=== PATIENT | male | born 1980 | race Caucasian/White ===

== ENCOUNTER 2020-03-26 08:59 | Observation (INO) | payer OTHER ==
[~2020-03-26] VITALS: Ht 190.5 cm; Wt 70.4 kg
--- NOTE | 2020-03-26 09:33 | EKG ---
[address] [address] Test Date: 2020-03-26 Test Time: 09:26:39 Pat Name: MARTIN CARRERA Department: Room: Gender: M Compensation And Benefits Analyst: SONIA : 1980 Requested By: HARSHAL WARREN Order Number: [id number] Reading MD: Measurements Intervals [place] Rate: 95 P: 56 NC: 136 QRS: 59 QRSD: 90 T: 52 QT: 352 QTc: 446 Interpretive Statements SINUS RHYTHM NORMAL ECG RI6.02 No previous ECG available for comparison
[2020-03-26 10:08] LABS: BASO # 0.1 x10^3/uL (0.0-0.2); BASO % 1 % (0-3); EOS % 1 % (0-3); LYMPH # 0.7 x10^3/uL (1.0-4.8); LYMPH % 13 % (24-48); MEAN CORPUSCULAR HEMOGLOBIN 22 pg (25-35); MEAN CORPUSCULAR HGB CONC 29 g/dL (31-37); MEAN CORPUSCULAR VOLUME 76 fL (79-100); MONO # 0.8 x10^3/uL (0.0-1.1); MONO % 15 % (0-9); NEUT # 4.1 x10^3uL (1.8-7.7); NEUT % 71 % (31-73); PLATELET COUNT 466 x10^3/uL (140-400); RED BLOOD COUNT 3.04 x10^6/uL (4.30-5.70); RED CELL DISTRIBUTION WIDTH 18.9 % (11.5-14.5); WHITE BLOOD COUNT 5.8 x10^3/uL (4.0-11.0)
--- NOTE | 2020-03-26 10:09 | PHYS DOC ---
Past History Past Medical History: Alcoholism Past Surgical History: No Surgical History Additional Smoking Information: 02/07 PPD Alcohol Use: Heavy Additional Alcohol Information: recently decreased to 0.5-1 pint per day of Vodka from 2.5 pints/day. Social History Narrative: see HPI. previous high levels of anxiety related to ETOH withdrawl. General Adult EDM: Chief Complaint: WITHDRAWAL HPI: HPI: Patient is a 39-year male coming in for medical clearance for alcohol rehab. Patient states he is already contacted rehab facility [facility] except therapy is medically cleared. States he has a long history of daily alcohol use and continues to drink a half of a pint to a pint of vodka daily. Last alcohol intake was last night. Has a history of anxiety alcohol withdrawal tremors but denies any his seizure history. Denies any auditory visual hallucinations. No other medical additions, otherwise has been well. Denies any other drug use. Denies any known history of cirrhosis. Did have an episode of GI bleeding about 3 weeks ago. States that he had vomited blood and had dark stools but symptoms only lasted for 1 to 2 days and have completely resolved now. Patient states he is having brown stools not diarrhea. Review of Systems: Review of Systems: All other systems within normal limits except for as noted in the HPI Physical Exam: PE: Constitutional: Well developed, well nourished, no acute distress, non-toxic appearance. [] HENT: Normocephalic, atraumatic, bilateral external ears normal, nose normal. [] Eyes: PERRLA, conjunctiva normal, no discharge. [] Neck: No rigidity, supple, no stridor. [] Cardiovascular: Regular rate and rhythm, brisk cap refill [] Lungs & Thorax: Non labored symmetric respirations, no tachypnea or respiratory distress [] Abdomen: Soft, nondistended, no abdominal tenderness, negative Driscoll sign Skin: Warm, dry, no erythema, no rash. [] Back: Unremarkable Extremities: No deformities, range of motion grossly intact, no lower extremity edema [] Neurologic: Alert and oriented X 3, no focal deficits noted. [] Psychologic: Affect normal, judgement normal, mood normal. [] Current Patient Data: Vital Signs: Vital Signs Date Time Temp Pulse Resp B/P (MAP) Pulse Ox O2 Delivery O2 Flow Rate FiO2 03/26/20 09:49 98.0 111 18 119/74 (89) 99 Room Air EKG: EKG: Sinus rhythm, heart rate 95 bpm, normal axis, no ST elevation or depression, no ectopy, normal intervals. [] Radiology/Procedures: Radiology/Procedures: [] Heart Score: Risk Factors: Risk Factors: DM, Current or recent (<one month) smoker, HTN, HLP, family history of CAD, obesity. Risk Scores: Score 0 - 3: 2.5% MACE over next 6 weeks - Discharge Home Score 4 - 6: 20.3% MACE over next 6 weeks - Admit for Clinical Observation Score 7 - 10: 72.7% MACE over next 6 weeks - Early Invasive Strategies Course & Med Decision Making: Course & Med Decision Making Pertinent Labs and Imaging studies reviewed. (See chart for details) [] Dragon Disclaimer: Dragon Disclaimer: This electronic medical record was generated, in whole or in part, using a voice recognition dictation system. Departure Departure: Impression: Primary Impression: Hypokalemia Additional Impressions: Alcohol dependence Microcytic anemia Disposition: ADMITTED INPT THIS HOSP Admitting Physician: Alban Rodriguez Condition: STABLE Referrals: PCP,VLAD (PCP) HARSHAL WARREN MD Mar 26, 2020 10:09
[2020-03-26 10:10] LABS: ALBUMIN 3.7 g/dL (3.4-5.0); ALBUMIN/GLOBULIN RATIO 0.9 (1.0-1.7); CALCIUM 8.8 mg/dL (8.5-10.1); CREATININE 0.7 mg/dL (0.7-1.3); GFR 126.9; TOTAL BILIRUBIN 0.8 mg/dL (0.2-1.0); TOTAL PROTEIN 7.8 g/dL (6.4-8.2)
[2020-03-26 10:10] LABS: BARBITURATES NEG (NEG); BENZODIAZEPINES NEG (NEG); CANNABINOIDS NEG (NEG); COCAINE NEG (NEG); METHADONE NEG (NEG); OPIATES NEG (NEG); PHENCYCLIDINE NEG (NEG)
[2020-03-26 10:13] LABS: HEMOGLOBIN 6.7 g/dL (13.0-17.5)
[2020-03-26 10:15] LABS: AMPHETAMINE/METHAMPHETAMINE NEG (NEG)
[2020-03-26 10:16] LABS: POTASSIUM 2.9 mmol/L (3.5-5.1)
[2020-03-26 10:26] LABS: BACTERIA,URINE 0 /HPF (0-FEW); BILIRUBIN,URINE NEG (NEG); CLARITY,URINE CLEAR; COLOR,URINE AMBER; GLUCOSE,URINE NEG (NEG); NITRITE,URINE NEG (NEG); WBC,URINE OCC /HPF (0-4)
[2020-03-26 10:27] LABS: SQUAMOUS EPITHELIAL CELL,UR OCC /LPF
[2020-03-26 10:48] LABS: HYPOCHROMIA MOD; PLT ESTIMATE INCREASED (ADEQUATE); POLYCHROMASIA PRESENT
[2020-03-26 10:49] LABS: ANISOCYTOSIS SLIGHT; MICROCYTOSIS MOD; TEAR DROP CELLS PRESENT
[2020-03-26] MEDS ORDERED: PANTOPRAZOLE IV 40 MG VIAL. IVP ONE (11:15)
[2020-03-26] MEDS ORDERED: ONDANSETRON PF 4 MG/2 ML VIAL. IVP PRN (11:15)
[2020-03-26] MEDS ORDERED: POTASSIUM CHLORIDE 20 MEQ TABLET.ER. PO ONE ×2 (11:15→15:30)
[2020-03-26 13:44] VITALS: BP 115/68
[2020-03-26 13:59] VITALS: BP 116/68
--- NOTE | 2020-03-26 14:43 | NUR ---
NURSING NOTE ADMIT PT ADMIT TO ROOM ICU BED 5 VIA EMS FROM ED WITH DX OF ANEMIA, ETOH WITHDRAWAL, AND HYPOKALEMIA. PT REPORTS NO MEDICAL HX OTHER THAN WAS TOLD YEARS AGO THAT HE WAS PREDIABETIC. PT STATES HE WAS COMING TO ED FOR MEDICAL CLEARANCE FOR ALCOHOL REHABILITATION PROGRAM AND WAS FOUND TO BE ANEMIC. PT STATES HE TAKES NO HOME MEDICATION. PT STATES HE HAS GREAT SUPPORT AT HOME, HIS MOTHER RAJESH IS VERY INVOLVED WITH HIS CARE, AND HE IS READY FOR REHAB. PT STATES HE HAS CUT DOWN ON HIS ALCOHOL CONSUMPTION, WAS DRINKING 2 PINTS OF VODKA A DAY, NOW DOWN TO 1 PINT OF VODKA A DAY. PT SETTLED IN ROOM. WILL CONTINUE TO MONITOR. MANISH COBIAN.
--- NOTE | 2020-03-26 14:45 | NUR ---
NURSING NOTE BLOOD TRANSFUSION BLOOD TRANSFUSION STARTED AT 1344. TUBING PRIMED WITH NORMAL SALINE AND THEN PRIMED WITH BLOOD. TRANSFUSION STARTED AT 60MLS/HR. PT MONITORED CLOSELY X 15 MIN. NO REACTION NOTED. TRANSFUSION INCREASED TO 125MLS/HR. WILL CONTINUE TO MONITOR. ARANZA HAMMOND.
[2020-03-26 14:52] VITALS: BP 115/56
--- NOTE | 2020-03-26 15:22 | NUR ---
NURSING NOTE SPOKE WITH DR UDVAL ABOUT PT ADMISSION, ORDER RECEIVED FOR 40MEQ OF POTASSIUM CHLOR 1X DOSE NOW, ORDER FOR PRN ATIVAN 1 MG Q4 HRS PRN REPEAT LABS IN AM. PER DR DUVAL, NO ELECTROLYTE REPLACEMENT PROTOCOL, NO ALCOHOL WITHDRAWAL PROTOCOL NEEDED, NO ADDITIONAL FLUIDS AT THIS TIME POST TRANSFUSION PER DR DUVAL. REFER TO CASE MANAGEMENT FOR DISCHARGE PLANNING AND REHAB PER DR DUVAL. MANISH COBIAN.
[2020-03-26 15:50] VITALS: BP 117/68
--- NOTE | 2020-03-26 16:52 | NUR ---
NURSING NOTE UPON ROUNDS, THIS NURSE NOTICED PT STARTING TO HAVE TREMOR AND ANXIETY. CIWA ASSESSMENT REPEATED, SCORE OF 6. PRN ORDER FOR ATIVAN GIVEN. PT GIVEN CHIPS AND GATORADE AND CURRENTLY IN BED WATCHING TV. WILL CONTINUE TO MONITOR. MANISH COBIAN.
[2020-03-26] MEDS ORDERED: cloNIDine HCL 0.1 MG TABLET PO PRN (19:00)
[2020-03-26] MEDS ORDERED: diphenhydrAMINE 50 MG/ML VIAL IVP PRN (19:00)
[2020-03-26] MEDS ORDERED: HALOPERIDOL LACT 5 MG/ML VIAL. IM PRN (19:00)
[2020-03-26 19:38] VITALS: BP 107/60
[2020-03-26 23:16] VITALS: BP 107/70
[2020-03-27 06:02] VITALS: BP 113/70
[2020-03-27 06:56] LABS: BASO # 0.1 x10^3/uL (0.0-0.2); BASO % 1 % (0-3); EOS # 0.1 x10^3/uL (0.0-0.7); EOS % 1 % (0-3); HEMATOCRIT 23.3 % (39.0-53.0); LYMPH # 0.7 x10^3/uL (1.0-4.8); LYMPH % 13 % (24-48); MEAN CORPUSCULAR HEMOGLOBIN 23 pg (25-35); MEAN CORPUSCULAR HGB CONC 30 g/dL (31-37); MEAN CORPUSCULAR VOLUME 77 fL (79-100); MONO # 0.8 x10^3/uL (0.0-1.1); MONO % 15 % (0-9); NEUT # 3.8 x10^3uL (1.8-7.7); NEUT % 69 % (31-73); PLATELET COUNT 395 x10^3/uL (140-400); RED BLOOD COUNT 3.01 x10^6/uL (4.30-5.70); RED CELL DISTRIBUTION WIDTH 19.2 % (11.5-14.5); WHITE BLOOD COUNT 5.6 x10^3/uL (4.0-11.0)
[2020-03-27 07:02] LABS: ALBUMIN 3.1 g/dL (3.4-5.0); ALBUMIN/GLOBULIN RATIO 0.8 (1.0-1.7); CALCIUM 8.8 mg/dL (8.5-10.1); CREATININE 0.7 mg/dL (0.7-1.3); GFR 126.9; POTASSIUM 3.8 mmol/L (3.5-5.1); TOTAL BILIRUBIN 1.1 mg/dL (0.2-1.0); TOTAL PROTEIN 6.9 g/dL (6.4-8.2)
[2020-03-27 07:43] LABS: FECAL OB PT POSITIVE (NEG)
--- NOTE | 2020-03-27 08:00 | NUR ---
This RN assessed CIWA score and currently pt is at a 6. Ativan 2mg IV given per protocol orders. Advised pt that if he is having any new withdrawl symptoms or if Ativan is not helping. Pt is an agreement.
[2020-03-27] MEDS ORDERED: FLU VACC QS 2020-21(6MOS+)/PF 0.5 ML SYRINGE. VAX IM ONE (09:00)
--- NOTE | 2020-03-27 10:30 | NUR ---
Dr. Rodriguez here to see pt this morning. Pt's hgb is higher. Dr. Rodriguez is in agreement with pt going home and to get into outpatient detox facility of his choice. Dr. Rodriguez called and spoke to pt's father regarding poc. Will see if we have a list of outpatient detox centers to assist pt.
--- NOTE | 2020-03-27 11:00 | NUR ---
Case management reached out to Ursula with [facility] for help with resources for this pt. [facility] does accept his insurance and if after clinical team assesses pt they will determine if they can help pt. Will await for clinical team decision
--- NOTE | 2020-03-27 11:04 | HP ---
ADMIT DATE: 03/26/2020 ATTENDING PHYSICIAN: Dr. Duval. CHIEF COMPLAINT: Symptomatic anemia, weakness. HISTORY OF PRESENT ILLNESS: The patient is a 39-year-old gentleman who drinks to excess. He is an alcoholic. He was requesting detoxification. He supposedly had a program scheduled in [place], but is not an inpatient facility. He had a hemoglobin of 6.8 g/dL, 1 unit of packed cells was ordered. He was given transfusion for symptomatic anemia. He is admitted to the medical floor, also with impending DT. CIWA protocol to start. By the time I saw him the next morning, he was sober and quite stable. PAST MEDICAL HISTORY: Significant for anemia due to gastritis. He drinks heavily, a liter of vodka daily. He has underlying depression. No surgical history. No known drug allergies. No known prescription. He was laid off from work because of his alcohol issues. He has parents that lived in town. Father teaches at the [employer] and [employer]. REVIEW OF SYSTEMS: Significant for the chronic alcoholism. He denied any hematemesis. He has had some black stool. All other systems reviewed and turned to be negative. PHYSICAL EXAMINATION: GENERAL: When I saw him, this is a pleasant young gentleman. INITIAL VITAL SIGNS: Showed a blood pressure 113/70, pulse 90 and regular. He was afebrile, oxygen saturation 99% on room air. HEENT: Head is without trauma. Pupils are reactive. Sclerae nonicteric. Oropharynx clear. NECK: Supple, no bruits. LUNGS: Clear. CARDIOVASCULAR: Regular heart tones. No gallops. ABDOMEN: Soft, no guarding, no masses. EXTREMITIES: Without edema. NEUROLOGIC: Focally intact. Speech was fluent. He had initially some tremors, but has since resolved. LABORATORY DATA: Hemoglobin on admission was 6.7 g/dL with chemistry panel fairly unremarkable. Potassium is 2.9 mEq, iron studies were low at 16, bilirubin 0.8. Transaminases are elevated. ASSESSMENT: 1. A 39-year-old gentleman, chronic alcoholic. 2. 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 3. Iron deficiency. 4. Underlying depression with anxiety. 5. Asymptomatic hypokalemia. PLAN: 1. Admit to the inpatient unit. 2. Transfusion of 1 unit packed red cells and increase oxygen carrying capacity in this symptomatic patient. 3. Potassium supplementation. 4. CIWA protocol. 5. Proton pump inhibitor. 6. Serial chemistries and CBC. MARIA L DUVAL MD DR: TISHA/radha JOB#: [id number] / [id number]
--- NOTE | 2020-03-27 11:50 | DS ---
DATE OF DISCHARGE: 03/27/2020 ATTENDING PHYSICIAN: Dr. Maria L Duval FINAL DISCHARGE DIAGNOSES: 1. Acute alcohol withdrawal, improved. 2. Delirium tremens, resolved. 3. Chronic alcoholism. 4. Symptomatic anemia. 5. Iron deficiency. 6. Alcoholic gastritis. 7. Asymptomatic hypokalemia. 8. Underlying depression with anxiety. HISTORY AND PHYSICAL: The patient is a 39-year-old gentleman admitted through the ED, he was having any impending withdrawal, drinking heavily a liter of vodka a day. He was in process of getting him to an inpatient program. He also was found to have a hemoglobin of 6.7 gram, 1 unit of blood was ordered and transfused. PHYSICAL EXAMINATION: Please see the dictated note. PERTINENT LABORATORY AND X-RAY STUDIES: Admission hemoglobin was 6.7 g/dL, repeated after 1 unit was up to 7.0. He was not symptomatic. It will take some time to equilibrate. His platelets are adequate. His MCV is diminished. Iron levels were low. Potassium was 2.9 mEq, with replacement was up to 3.8 mEq in the next day. COURSE IN THE HOSPITAL: The patient was given 1 unit of packed red cells. He was symptomatic. This was given to increase oxygen carrying capacity in this symptomatic patient. CIWA protocol entertained. He had impending tremors, but was quite stable and improved the next day. At this time, we gave him the numbers and I had a chance to talk with his father, given the patient's permission to discuss the case. We will look for an inpatient psychiatric unit from home. He is discharged home with a prescription for Ativan 1 mg 3 times a day, Nexium 40 mg p.o. daily and the Vitron-C one b.i.d. to help with his low iron stores. Strong encouragement to avoid further alcohol altogether whether or not he will quit drinking remains to be seen. We gave him some leads telephone number and places of inpatient treatment programs. I explained to the patient and the father, the best treatment for depression that we have is a combination of psychotherapy and pharmacotherapy. He was discharged then from our hospital in stable condition with explicit instructions and followup care. MARIA L DUVAL MD DR: TISHA/radha JOB#: [id number] / [id number]
[2020-03-27 12:00] VITALS: BP 120/76
--- NOTE | 2020-03-27 13:30 | NUR ---
[facility] clinical team has deemed that pt is a good candidate for their program. [place], the easiest place for him to be [place] [facility]. Negar with [facility] spoke with pt in depth about his options. Pt wants to discuss with his parents before deciding. Info will be provided to parents upon discharge.
--- NOTE | 2020-03-27 15:00 | NUR ---
reviewed discharge instructions with pt. written script for ativan 1mg 1 tab po TID #[address] tabs was written [address] Dr[address] Rodriguez. Also reviewed discharge instructions with pt's father. IV was dc'd prior to discharge. Pt ambulated to pov upon discharge, he refused wheelchair.
== END 2020-03-27 15:00 | disposition home or self-care (01) ==
LOC: ER 08:59 → ICU 11:05
PROVIDERS: ADMIT Hospitalist; ATTEND Hospitalist
DX: D64.9 Anemia, unspecified (principal); K29.20 Alcoholic gastritis without bleeding; F41.9 Anxiety disorder, unspecified; F32.9 Major depressive disorder, single episode, unspecified; E87.6 Hypokalemia; F10.231 Alcohol dependence with withdrawal delirium; D50.9 Iron deficiency anemia, unspecified; Z79.899 Other long term (current) drug therapy; Z23 Encounter for immunization
CPT/HCPCS: 36415; 36430; 80053; 80307; 81001; 82274; 83540; 83550; 83690; 83735; 85025; 86850; 86900; 86901; 86920; 90471; 90686; 93005; 96374; 96375; 96376; 99284; C9113; G0378; G0480; J2060; P9016; G0379